=== PATIENT | male | born 1985 | race African-American/Black ===

== ENCOUNTER 2025-07-03 08:24 | Inpatient (IN) | payer MEDICAID, OTHER ==
[~2025-07-03] VITALS: Ht 193 cm; Wt 144.0 kg
[2025-07-03] VITALS (9 sets, daily range): BP systolic 98–143; BP diastolic 83–134; PULSE 61–118; RESP 18–20; TEMP 97.7–98.1; O2SAT 90–100
--- NOTE | 2025-07-03 08:50 | ED.PDOC ---
SOB-HPI HPI Comments This is a 39 year old male presenting to the ED with chief complaint of SOB. Patient reports that he has been experiencing SOB with associated coughing and wheezing since last night. Patient relays that he had experience similar symptoms in the past during work. Patient denies any chest pain, fever, chills, N/V, or dizziness. Chief Complaint: Shortness of Breath Time Seen by MD: 08:48 Primary Care Provider: NONE Reviewed notes: Nurses Notes, Medications, Allergies Information Source: Patient Mode of Arrival: Ambulatory Severity: Moderate Timing: Hours Duration: Since onset Context: At Rest PE Risk Factors: None History of: None Prehospital treatment: None Modifying Factors: Nothing Associated Signs and Symptoms: Cough If cough with SOB: Non-Productive Past Medical History PAST MEDICAL HISTORY: Denies Surgical History: Denies all surgeries Family History Family History: Reviewed,noncontributory to illness, Unknown Social History Smoker: Non-Smoker Alcohol: Occasionally Drugs: Denies Drug Use Lives In: Home Constitutional: denies: chills, diaphoresis, fatigue, fever, malaise, sweats, weakness, others EENTM: denies: blurred vision, double vision, ear bleeding, ear discharge, ear drainage, ear pain, ear ringing, eye pain, eye redness, hearing loss, mouth pain, mouth swelling, nasal discharge, nose bleeding, nose congestion, nose pain, photophobia, tearing, throat pain, throat swelling, voice changes, others Respiratory: reports: cough, shortness of breath, wheezing; denies: hemoptysis, orthopnea, SOB at rest, SOB with excertion, stridor, others Cardiovascular: denies: chest pain, dizzy spells, diaphoresis, Dyspnea on exertion, edema, irregular heart beat, left arm pain, lightheadedness, palpitations, PND, syncope, others Gastrointestinal: denies: abdomen distended, abdominal pain, blood streaked bowels, constipated, diarrhea, dysphagia, difficulty swallowing, hematemesis, melena, nausea, poor appetite, poor fluid intake, rectal bleeding, rectal pain, vomiting, others Genitourinary: denies: burning, dysuria, flank pain, frequency, hematuria, incontinence, penile discharge, penile sore, pain, testicle pain, testicle swelling, urgency, others Neurological: denies: dizziness, fainting, headache, left sided numbness, left sided weakness, numbness, paresthesia, pre-existing deficit, right sided numbness, right sided weakness, seizure, speech problems, tingling, tremors, we akness, others Musculoskeletal: denies: back pain, gout, joint pain, joint swelling, muscle pain, muscle stiffness, neck pain, others Integumetry: denies: bruises, change in color, change in hair/nails, dryness, laceration, lesions, lumps, rash, wounds, others Allergic/Immunocompromised: denies: Difficulty Healing, Frequent Infections, Hives, Itching, others Hematologic/Lymphatic: denies: anemia, blood clots, easy bleeding, easy bruising, swollen glands, others Endocrine: denies: excessive hunger, excessive sweating, excessive thirst, excessive urination, flushing, intolerance to cold, intolerance to heat, unexplained weight gain, unexplained weight loss, others Psychiatric: denies: anxiety, bipolar disorder, depression, hopeless, panic disorder, schizophrenia, sleepless, suicidal, others All Other Systems: Reviewed and Negative Physical Exam General Appearance: No Apparent Distress, Normal HEENT: Normal ENT Inspection, Pharynx Normal, TMs Normal Neck: Full Range of Motion, Non-Tender, Normal, Normal Inspection Respiratory: Chest Non-Tender, Lungs Clear, No Accessory Muscle Use, No Respiratory Distress, Normal Breath Sounds Cardiovascular: No Edema, No JVD, No Murmur, No Gallop, Normal Peripheral Pulses, Regular Rate/Rhythm Breast Exam: Deferred Gastrointestinal: No Organomegaly, Non Tender, No Pulsatile Mass, Normal Bowel Sounds, Soft Genitalia: Deferred Pelvic: Deferred Rectal: Deferred Extremities: No calf tenderness, Normal capillary refill, Normal inspection, Normal range of motion, Non-tender, No pedal edema Musculoskeletal : Apperance: Normal Neurologic: Alert, 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 Was a procedure done?: No Differential Dx Differential Diagnosis: CHF, COPD, Dysrhythmia, Pneumonia X-Ray, Labs, Meds, VS Vital Signs Date Time Temp Pulse Resp B/P (MAP) Pulse Ox O2 Delivery O2 Flow Rate FiO2 07/03/25 08:35 120 07/03/25 08:26 98.6 117 20 179/120 95 98.6 Lab Test 07/03/25 11:40 07/03/25 10:00 Range/Units Troponin I High Sensitivity Pending 59 *H </=54 ng/L White Blood Count 10.5 4.4-10.8 10^3/uL Red Blood Count 5.77 4.5-5.90 10^6/uL Hemoglobin 17.4 13.5-17.5 g/dL Hematocrit 51.9 41.0-53.0 % Mean Corpuscular Volume 89.9 80.0-100.0 fL Mean Corpuscular Hemoglobin 30.2 28.0-32.0 pg Mean Corpuscular Hemoglobin Concent 33.5 32.0-36.0 g/dL Red Cell Distribution Width 12.6 11.8-14.3 % Platelet Count 216 140-450 10^3/uL Mean Platelet Volume 9.5 6.9-10.8 fL Neutrophils (%) (Auto) 64.5 37.0-80.0 % Lymphocytes (%) (Auto) 28.0 10.0-50.0 % Monocytes (%) (Auto) 6.9 0.0-12.0 % Eosinophils (%) (Auto) 0.4 0.0-7.0 % Basophils (%) (Auto) 0.2 0.0-2.0 % Neutrophils # (Auto) 6.8 1.6-8.6 10 ^3/uL Lymphocytes # (Auto) 2.9 0.4-5.4 10 ^3/uL Monocytes # (Auto) 0.7 0-1.3 10 ^3/uL Eosinophils # (Auto) 0 0-0.8 10 ^3/uL Basophils # (Auto) 0 0-0.2 10 ^3/uL Nucleated Red Blood Cells 0.1 % Sodium Level 133 L 136-145 mmol/L Potassium Level 4.4 3.5-5.1 mmol/L Chloride Level 99 98-107 mmol/L Carbon Dioxide Level 22 20-31 mmol/L Anion Gap 12 5-15 Blood Urea Nitrogen 9 9-23 mg/dL Creatinine 0.98 0.700-1.30 mg/dL Glomerular Filtration Rate Calc 101 >90 mL/min BUN/Creatinine Ratio 9.2 L 10.0-20.0 Serum Glucose 291 H 74-106 mg/dL Calcium Level 9.2 8.7-10.4 mg/dL B-Type Natriuretic Peptide 160.14 0-100 pg/mL [address] [address] Ph: [phone] DIAGNOSTIC IMAGING Diagnostic Imaging Report : [id number] Signed PATIENT: MELISA FRAZIER ACCT: [id number] UNIT: [id number] : 1985 LOC: ER ROOM / BED: / AGE / SEX: 39 / M ADM STATUS: REG ER SERVICE 7 ORDERING PHYSICIAN: LOYD GALVAN MD PROCEDURE(s): CXRP - CHEST PORTABLE REASON: sob ORDER NUMBER(s): [id number], ACCESSION NUMBER(s): [id number] CLINICAL HISTORY: sob TECHNIQUE: Single view of the chest was obtained. COMPARISON: None FINDINGS: Evaluation is limited due to patient body habitus. The heart size and pulmonary vasculature are normal. No definite focal lung opacity seen. IMPRESSION: Limited exam with no definite acute cardiopulmonary process. ATED BY: CLARENCE WILL MD DICTATED DATE/TIME: 07/03/251000 SIGNED BY: CLARENCE WILL MD SIGNED DATE/TIME: 07/03/251000 CC: Images Reviewed?: Images reviewed and evaluated by me Time of 1ST Reevaluation: 09:48 Reevaluation 1ST: Improved Patient Education/Counseling: Diagnosis, Treatment Family Education/Counseling: No Family Present SEPSIS Sepsis Screen Date sepsis recognized/suspect: Jul 03, 2025 Time Sepsis recognized/suspect: 826 Recent Procedure: No On Antibiotic Therapy: No Respiratory Rate >20: No Heart Rate >90: No Temp<36 C (96.8 F) or >38.3 C: No SBP <90 or MAP <65 mmHG: No New Acute Mental Status Change: No Is the patient on CPAP, BIPAP,: No Physician Orders Chest Portable (07/03/25 09:38) Troponin-I Hs (07/03/25 10:38) Troponin-I Hs (07/03/25 12:38) Hydralazine Injection (Apresoline Inject (07/03/25 12:30) Vital Signs Date Time Temp Pulse Resp B/P (MAP) Pulse Ox O2 Delivery O2 Flow Rate FiO2 07/03/25 08:35 120 07/03/25 08:26 98.6 117 20 179/120 95 98.6 Laboratory Tests Test 07/03/25 10:00 White Blood Count 10.5 10^3/uL (4.4-10.8) Departure 1 Departure Time of Disposition: 12:29 (Patient presented with hypertension and symptoms concerning for hypertensive emergency. Patient is receiving iv blood pressure medications requiring intensive monitoring. Data: 1. I ordered and reviewed the result of at least 3 labs including a CBC, BMP, and Urinalysis. 2. I independently interpreted the following tests: Chest x-ray with some vascular congestion.. EKG which is Normal Sinus RhythmRisk:This patient has a high risk of morbidity due to further diagnostic testing or treatment and may suffer from an acute cardiac disorder. Workup reveals hypertensive emergency and patient should be admitted for further workup. and possible expert consultation. ) Impression: Primary Impression: Hypertensive urgency Additional Impressions: Acute chest pain Shortness of breath Disposition: ADMITTED INPATIENT Admit to: Tele Condition: Guarded Critical Care Note Critical Care Time?: Yes Critical care comment: Hypertensive urgency Authorized and Performed by: Loyd Galvan MD Total critical care time: Approximately 38 minutes Due to a high probability of clinically significant, life threatening deterioration, the patient required my highest level of preparedness to intervene emergently and I personally spent this critical care time directly and personally managing the patient. This critical care time included obtaining a history; examining the patient; pulse oximetry; ordering and review of studies; arranging urgent treatment with development of a management plan; evaluation of patient's response to treatment; frequent reassessment; and, discussions with other providers. This critical care time was performed to assess and manage the high probability of imminent, life-threatening deterioration that could result in multi-organ failure. It was exclusive of separately billable procedures and treating other patients and teaching time. Please see my other sections and the rest of the note for further information on patient assessment and treatment. Stability Stability form required: No Heart Score Heart Score: Heart Score Response (Comments) Value History N/A 0 EKG N/A 0 Age N/A 0 Risk Factors N/A 0 Troponin N/A 0 Total 0 I personally scribed for LOYD GALVAN MD ([email or web address]) on 07/03/25 at 08:50. Electronically submitted by Brian Rowan ([email or web address]). I personally scribed for LOYD GALVAN MD ([email or web address]) on 07/03/25 at 11:18. Electronically submitted by Brian Rowan ([email or web address]). LOYD GALVAN MD Jul 03, 2025 08:50
--- NOTE | 2025-07-03 09:32 | ECG ---
[facility] Test Date: 2025-07-03 Test Time: 08:35:30 Pat Name: MELISA FRAZIER Department: ED Room: 0274T Gender: M Ham Facer: LOLITA : 1985 Requested By: LOYD CULVER Order Number: [id number] Reading MD: Esteban Gonzalez Measurements Intervals [place] Rate: 120 P: 76 KS: 138 QRS: 27 QRSD: 83 T: 209 QT: 269 QTc: 380 Interpretive Statements Sinus tachycardia Abnormal R-wave progression, early transition LVH with secondary repolarization abnormality Electronically Signed On 07-08-2025 14:17:36 PDT by Esteban Gonzalez Please click the below link to view image of tracing.
--- NOTE | 2025-07-03 10:03 | DVH ---
CLINICAL HISTORY: sob TECHNIQUE: Single view of the chest was obtained. COMPARISON: None FINDINGS: Evaluation is limited due to patient body habitus. The heart size and pulmonary vasculature are normal. No definite focal lung opacity seen. IMPRESSION: Limited exam with no definite acute cardiopulmonary process.
[2025-07-03 10:19] LABS: Hematocrit 51.9 % (41.0-53.0); Hemoglobin 17.4 g/dL (13.5-17.5); Mean Corpuscular Hemoglobin 30.2 pg (28.0-32.0); Mean Corpuscular Volume 89.9 fL (80.0-100.0); Nucleated Red Blood Cells % 0.1 %
[2025-07-03 10:34] LABS: Chloride 99 mmol/L (98-107); Potassium 4.4 mmol/L (3.5-5.1)
[2025-07-03 10:35] LABS: Anion Gap 12 (5-15); Calcium 9.2 mg/dL (8.7-10.4); Carbon Dioxide 22 mmol/L (20-31)
[2025-07-03 10:40] LABS: BUN/Creatinine Ratio 9.2 (10.0-20.0); Blood Urea Nitrogen 9 mg/dL (9-23)
[2025-07-03 10:45] LABS: Glucose 291 mg/dL (74-106); Sodium 133 mmol/L (136-145)
[2025-07-03] MEDS: hydrALAZINE HCL 20 MG/ML VL IV ONE (13:34)
[2025-07-03] MEDS ORDERED: DOCUSATE SOD 100 MG CAP PO PRN (16:15)
[2025-07-03] MEDS ORDERED: MORPHINE SULFATE INJ 2 MG/ml SYRG IV PRN (16:15)
[2025-07-03] MEDS ORDERED: ACETAMINOPHEN 325 MG TAB PO PRN (16:15)
[2025-07-03] MEDS ORDERED: ONDANSETRON HCL 4 MG/2 ML VIAL IV PRN (16:15)
[2025-07-03] MEDS ORDERED: NITROGLYCERIN 0.4 MG SL TAB SL PRN (16:15)
--- NOTE | 2025-07-03 16:48 | DVHHP2 ---
History of Present Illness Reason for Visit: Shortness of breath History of Present Illness Breezy Pal is a 39-year-old obese male with no significant past medical history, however he has not been to a primary care provider for over 10 years, who came to the hospital for shortness of breath. Patient states the shortness of breath began last night at 2300. He woke up this morning about 0600 gasping for air. Family convinced him to come to the hospital around 0830. He states he has never had a problem like this before. Past Surgical History: None Smoke: No ALCOHOL: occassional Drugs: None Lives: with Family Domestic Violence: Neg Review of Systems Constitutional: No: Fever, Chills, Sweats, Weakness, Malaise, Other Eyes: No: Pain, Vision change, Conjunctivae inflammation, Eyelid inflammation, Other, Redness ENT: No: Ear pain, Ear discharge, Nose pain, Nose discharge, Nose congestion, Mouth pain, Mouth swelling, Throat pain, Throat swelling, Other Respiratory: Cough, Shortness of breath, SOB with excertion, Wheezing; No: Dry, Hemoptysis, Pleuritic Pain, Sputum, Wheezing, Other Cardiovascular: No: Chest Pain, Palpitations, Orthopnea, Paroxysmal Noc. Dyspnea, Edema, Lt Headedness, Other Gastrointestinal: No: Nausea, Vomiting, Abdominal Pain, Diarrhea, Constipation, Melena, Hematochezia, Other Genitourinary: No Dysuria, No Frequency, No Incontinence, No Hematuria, No Retention, No Other Musculoskeletal: No: other, neck pain, shoulder pain, arm pain, back pain, hand pain, leg pain, foot pain Skin: No: Rash, Lesions, Jaundice, Bruising, Other Neurological: No: Weakness, Numbness, Incoordination, Change in speech, Confusion, Seizures, Other Allergies: Coded Allergies: No Known Drug Allergy (Verified Allergy, Unknown, 03/28/18) Medications Current Medications Medications Dose Ordered Sig/Drew Route Start Time Stop Time Status Last Admin Dose Admin Acetaminophen/ Hydrocodone Bitart 1 tab Q4HP PRN PO 07/03/25 16:15 UNV Ondansetron HCl 4 mg Q4HP PRN IV 07/03/25 16:15 UNV Docusate Sodium 100 mg BIDPRN PRN PO 07/03/25 16:15 UNV Acetaminophen 650 mg Q6HP PRN PO 07/03/25 16:15 UNV Nitroglycerin 0.4 mg Q5MINP PRN SL 07/03/25 16:15 UNV Morphine Sulfate 2 mg Q30M PRN IV 07/03/25 16:15 UNV Ipratropium [place] 0.5 mg Q6HPRN PRN NEB 07/03/25 16:15 UNV Albuterol 2.5 mg Q6HPRN PRN NEB 07/03/25 16:15 UNV Exam Vital Signs Vital Signs Date Time Temp Pulse Resp B/P (MAP) Pulse Ox O2 Delivery O2 Flow Rate FiO2 07/03/25 14:17 120 20 104/90 (95) 96 07/03/25 08:26 98.6 98.6 General Appearance: Alert, Oriented X3, Cooperative, mild distress HEENT: Atraumatic Respiratory: Other (diminished breath sounds) Cardiovascular: Normal S1, Normal S2, Other (ST) Abdominal: Normal bowel sounds, Soft, No tenderness, No hepatospenomegaly Extremities: No clubbing, No cyanosis, No edema, Normal pulses, No te nderness/swelling Skin: No rashes, No breakdown, No significant lesion Neuro: Normal gait, Normal speech, Strength at 5/5 X4 ext Psych/Mental Status: Mental status NL, Mood NL Labs/Xrays Labs Test 07/03/25 13:41 07/03/25 10:00 Range/Units Troponin I High Sensitivity 47 </=54 ng/L White Blood Count 10.5 4.4-10.8 10^3/uL Red Blood Count 5.77 4.5-5.90 10^6/uL Hemoglobin 17.4 13.5-17.5 g/dL Hematocrit 51.9 41.0-53.0 % Mean Corpuscular Volume 89.9 80.0-100.0 fL Mean Corpuscular Hemoglobin 30.2 28.0-32.0 pg Mean Corpuscular Hemoglobin Concent 33.5 32.0-36.0 g/dL Red Cell Distribution Width 12.6 11.8-14.3 % Platelet Count 216 140-450 10^3/uL Mean Platelet Volume 9.5 6.9-10.8 fL Neutrophils (%) (Auto) 64.5 37.0-80.0 % Lymphocytes (%) (Auto) 28.0 10.0-50.0 % Monocytes (%) (Auto) 6.9 0.0-12.0 % Eosinophils (%) (Auto) 0.4 0.0-7.0 % Basophils (%) (Auto) 0.2 0.0-2.0 % Neutrophils # (Auto) 6.8 1.6-8.6 10 ^3/uL Lymphocytes # (Auto) 2.9 0.4-5.4 10 ^3/uL Monocytes # (Auto) 0.7 0-1.3 10 ^3/uL Eosinophils # (Auto) 0 0-0.8 10 ^3/uL Basophils # (Auto) 0 0-0.2 10 ^3/uL Nucleated Red Blood Cells 0.1 % Sodium Level 133 L 136-145 mmol/L Potassium Level 4.4 3.5-5.1 mmol/L Chloride Level 99 98-107 mmol/L Carbon Dioxide Level 22 20-31 mmol/L Anion Gap 12 5-15 Blood Urea Nitrogen 9 9-23 mg/dL Creatinine 0.98 0.700-1.30 mg/dL Glomerular Filtration Rate Calc 101 >90 mL/min BUN/Creatinine Ratio 9.2 L 10.0-20.0 Serum Glucose 291 H 74-106 mg/dL Calcium Level 9.2 8.7-10.4 mg/dL B-Type Natriuretic Peptide 160.14 0-100 pg/mL TECHNIQUE: Single view of the chest was obtained. FINDINGS: Evaluation is limited due to patient body habitus. The heart size and pulmonary vasculature are normal. No definite focal lung opa city seen. IMPRESSION: Limited exam with no definite acute cardiopulmonary process. SEPSIS Sepsis Screen Date sepsis recognized/suspect: Jul 03, 2025 Time Sepsis recognized/suspect: 826 Recent Procedure: No On Antibiotic Therapy: No Respiratory Rate >20: No Heart Rate >90: No Temp<36 C (96.8 F) or >38.3 C: No SBP <90 or MAP <65 mmHG: No New Acute Mental Status Change: No Is the patient on CPAP, BIPAP,: No Physician Orders Chest Portable (07/03/25 09:38) Admit (07/03/25 16:07) Code Status (07/03/25 16:07) 2 Gm Sodium Diet (07/03/25 Dinner) Hydrocodone-Acet 5/325mg Tab ([place] (07/03/25 16:15) Ondansetron Hcl (Zofran) (07/03/25 16:15) Docusate Sodium Capsule (Colace Capsule) (07/03/25 16:15) Complete Blood Count (07/04/25 04:00) Comprehensive Metabolic Panel (07/04/25 04:00) Condition: Serious (07/03/25 16:07) Acetaminophen Tablet (Tylenol Tablet) (07/03/25 16:15) Nitroglycerin Sublingual (Ntrostat Subli (07/03/25 16:15) Morphine Sulfate Injection (07/03/25 16:15) Stat Ekg For Chest Pain (07/03/25 16:07) Notify Md Of Changes From Base (07/03/25 16:07) Flight Mechanic For 24 Hours (07/03/25 16:07) Emergency Dysrhythmia Protocol (07/03/25 16:07) Rhythm Strips Once Every Shift (07/03/25 16:07) Oxygen By Nasal Cannula (07/03/25 16:07) NS (07/03/25 16:15) Ipratropium Medneb (Atrovent Medneb) (07/03/25 16:15) Albuterol Medneb (Ventolin Medneb) (07/03/25 16:15) Vital Signs Date Time Temp Pulse Resp B/P (MAP) Pulse Ox O2 Delivery O2 Flow Rate FiO2 07/03/25 14:17 120 20 104/90 (95) 96 07/03/25 14:15 119 22 87/49 (62) 96 07/03/25 13:42 139 07/03/25 13:37 139 20 190/123 (145) 98 07/03/25 13:34 190/123 07/03/25 08:35 120 07/03/25 08:26 98.6 117 20 179/120 95 98.6 Laboratory Tests Test 07/03/25 10:00 White Blood Count 10.5 10^3/uL (4.4-10.8) Medications Medications Dose Ordered Sig/Drew Route Start Time Stop Time Status Last Admin Dose Admin Hydralazine HCl 20 mg ONCE ONCE IV 07/03/25 12:30 07/03/25 12:50 DC 07/03/25 13:34 20 MG Assessment/Plan Assessment/Plan Assessment: Hypertensive urgency, Elevated troponin, Hyperglycemia, Possible COPD, Sinus tachycardia, Plan: Admit to Tele, Breathing treatments, ECHO, IV hydration, A1c, Consider cardiology consult, Start antihypertensives, Plan discussed with: Patient My Orders Orders - MONIE MCMILLAN Procedure Category Date Status Time Admit ADMIT 07/03/25 Transmitted 16:07 Code Status CODE 07/03/25 Transmitted 16:07 2 Gm Sodium Diet DIET 07/03/25 Transmitted Dinner Hydrocodone-Acet PHA 07/03/25 Logged 5/325mg Tab ([place] 16:15 Ondansetron Hcl PHA 07/03/25 Logged (Zofran) 16:15 Docusate Sodium PHA 07/03/25 Logged Capsule (Colace 16:15 Complete Blood Count LAB 07/04/25 Verified 04:00 Comprehensive LAB 07/04/25 Verified Metabolic Panel 04:00 Condition: Serious [place]ONE 07/03/25 In Process 16:07 Acetaminophen Tablet PHA 07/03/25 Logged (Tylenol Tablet) 16:15 Nitroglycerin PHA 07/03/25 Logged Sublingual (Ntrostat 16:15 Morphine Sulfate PHA 07/03/25 Logged Injection 16:15 Stat Ekg For Chest [facility] 07/03/25 In Process Pain 16:07 Notify Md Of Changes [facility] 07/03/25 In Process From Base 16:07 Flight Mechanic For [facility] 07/03/25 In Process 24 Hours 16:07 Emergency Dysrhythmia [facility] 07/03/25 In Process Protocol 16:07 Rhythm Strips Once [facility] 07/03/25 In Process Every Shift 16:07 Oxygen By Nasal RT 07/03/25 Transmitted Cannula 16:07 NS PHA 07/03/25 Transmitted 16:15 Ipratropium Medneb PHA 07/03/25 Transmitted (Atrovent Medneb) 16:15 Albuterol Medneb PHA 07/03/25 Transmitted (Ventolin Medneb) 16:15 Date of Service: Jul 03, 2025 Billing Provider: MONIE MCMILLAN Common Visit Codes: [id number] INP/OBS CARE (MOD) MONIE MCMILLAN Jul 03, 2025 16:48
[2025-07-03] MEDS ORDERED: SERT100T PO (17:57)
[2025-07-03] MEDS ORDERED: LISI40TA16 PO (17:57)
[2025-07-03] MEDS ORDERED: VALA1TAB PO (17:57)
[2025-07-03] MEDS ORDERED: METO-158 PO (17:57)
[2025-07-03] MEDS: SODIUM CHLORIDE 0.9% 1,000 ML IV ONE (18:43)
[2025-07-03] MEDS: ALBUTEROL SULF 2.5 MG/0.5ML(0.5%) NEB SOLN NEB PRN (20:27)
[2025-07-03] MEDS: IPRATROPIUM BROM 0.5 MG/2.5ML INH SOL NEB PRN (20:27)
[2025-07-04] VITALS (10 sets, daily range): BP systolic 128–156; BP diastolic 80–105; PULSE 104–117; RESP 17–22; TEMP 97.6–98.2; O2SAT 95–98
[2025-07-04 08:04] LABS: Hematocrit 45.7 % (41.0-53.0); Hemoglobin 15.8 g/dL (13.5-17.5); Mean Corpuscular Hemoglobin 30.4 pg (28.0-32.0); Mean Corpuscular Volume 87.8 fL (80.0-100.0); Nucleated Red Blood Cells % 0.0 %
[2025-07-04 08:13] LABS: Alanine Aminotransferase 11 U/L (7-40); Alkaline Phosphatase 85 U/L (46-116); Anion Gap 12 (5-15); BUN/Creatinine Ratio 12.6 (10.0-20.0); Blood Urea Nitrogen 16 mg/dL (9-23); Calcium 9.0 mg/dL (8.7-10.4); Carbon Dioxide 25 mmol/L (20-31); Potassium 4.4 mmol/L (3.5-5.1); Total Protein 7.3 g/dL (5.7-8.2)
[2025-07-04 08:14] LABS: Albumin 4.1 g/dL (3.2-4.8); Bilirubin, Total 0.7 mg/dL (0.2-1.0)
[2025-07-04 08:41] LABS: Chloride 98 mmol/L (98-107); Glucose 288 mg/dL (74-106); Sodium 135 mmol/L (136-145)
[2025-07-04] MEDS: hydroCHLOROthiazide 25 MG TAB PO SCH (09:30)
[2025-07-04] MEDS: HYDROcodone-ACET 5/325MG TAB PO PRN (09:38)
[2025-07-04] MEDS: OPTISON 3ml Vial for INJ IV ONE (09:50)
--- NOTE | 2025-07-04 11:00 | DVHPN2 ---
Subjective The patient is seen and examined at bedside. The patient complained of chest pain. The patient stated that he did not know he had hypertension nor diabetes. Reviewed: Care Plan, H&P, Labs, Medications, Previous Orders, Radiology Changes from previous H/P or p: No Changes Eyes: No Pain, No Vision change, No Conjunctivae inflammation, No Eyelid inflammation, No Other, No Redness ENT: No Ear pain, No Ear discharge, No Nose pain, No Nose discharge, No Nose congestion, No Mouth pain, No Mouth swelling, No Throat pain, No Throat swelling, No Other Cardiovascular: No Chest Pain, No Palpitations, No Orthopnea, No Paroxysmal Noc. Dyspnea, No Edema, No Lt Headedness, No Other Respiratory: Cough; No Dry; Shortness of breath, SOB with excertion, Wheezing; No Hemoptysis, No Pleuritic Pain, No Sputum, No Other Gastrointestinal: No Nausea, No Vomiting, No Abdominal Pain, No Diarrhea, No Constipation, No Melena, No Hematochezia, No Other Genitourinary: No Dysuria, No Frequency, No Incontinence, No Hematuria, No Retention, No Other Musculoskeletal: No other, No neck pain, No shoulder pain, No arm pain, No back pain, No hand pain, No leg pain, No foot pain Skin: No Rash, No Lesions, No Jaundice, No Bruising, No Other Objective Vitals Vital Signs Date Time Temp Pulse Resp B/P (MAP) Pulse Ox O2 Delivery O2 Flow Rate FiO2 07/04/25 09:30 135/90 07/04/25 08:34 98.2 110 17 97 98.2 07/04/25 08:00 Room Air* 0 21 Intake/Output Intake and Output 07/04/25 07:00 Intake Total 230 ml Balance 230 ml Intake Oral 230 ml # Voids 1 General Appearance: Alert, Oriented X3, Cooperative, No acute distress HEENT: Atraumatic, PERRLA, EOMI, Mucous membr. moist/pink Neck: Supple Lungs: Clear to auscultation, Normal air movement Cardiovascular: Regular rate, Normal S1, Normal S2, No murmurs, Gallops, Rubs Abdomen: Normal bowel sounds, Soft, No tenderness Neuro: Cranial nerves 3-12 NL Psych/Mental Status: Mental status NL Medications Current Medications Medications Dose Ordered Sig/Drew Route Start Time Stop Time Status Last Admin Dose Admin Acetaminophen/ Hydrocodone Bitart 1 tab Q4HP PRN PO 07/03/25 16:15 07/04/25 09:38 1 TAB Ondansetron HCl 4 mg Q4HP PRN IV 07/03/25 16:15 Docusate Sodium 100 mg BIDPRN PRN PO 07/03/25 16:15 Acetaminophen 650 mg Q6HP PRN PO 07/03/25 16:15 Nitroglycerin 0.4 mg Q5MINP PRN SL 07/03/25 16:15 Morphine Sulfate 2 mg Q30M PRN IV 07/03/25 16:15 Ipratropium [place] 0.5 mg Q6HPRN PRN NEB 07/03/25 16:15 07/03/25 20:27 0.5 MG Albuterol 2.5 mg Q6HPRN PRN NEB 07/03/25 16:15 07/03/25 20:27 2.5 MG Hydrochlorothiazide 25 mg DAILY PO 07/04/25 10:00 07/04/25 09:30 25 MG Laboratory Results Laboratory Tests 07/04/25 06:25 Chemistry Test 07/04/25 06:25 Albumin 4.1 g/dL (3.2-4.8) Calcium Level 9.0 mg/dL (8.7-10.4) Total Protein 7.3 g/dL (5.7-8.2) LFT Test 07/04/25 06:25 Alanine Aminotransferase (ALT) 11 U/L (7-40) Alkaline Phosphatase 85 U/L (46-116) Aspartate Amino Transferase (AST) 19 U/L (13-40) Total Bilirubin 0.7 mg/dL (0.2-1.0) Labs and/or images reviewed: Labs reviewed by me Assessment/Plan Assessment/Plan Hypertensive urgency, Elevated troponin, Diabetes type 2 new onset uncontrolled with hemoglobin A1c 13.2 Possible COPD, Sinus tachycardia, Continuing current management. Continuing with oral hypertensive medication Start the patient on sliding scale insulin moderate I will order a Lantus for long-acting at bedtime Educated the patient regarding to diabetes in the consequence of diabetes uncontrolled such as retinopathy, neuropathy and other complication of diabetes including CVA and ischemic heart. This medical document was created using an electronic medical record system with [employer] direct computerized dictation system. Although this document has been carefully reviewed, there may still be some phonetic and typographical errors. These areas are purely typographical due to imperfections of the software programs, and do not reflect any compromise in the patient's medical care. Plan discussed with: Patient Date of Service: Jul 04, 2025 Billing Provider: BRENT DESIR MD Common Visit Codes: [id number] INP/OBS CARE(HIGH) BRENT DESIR MD Jul 04, 2025 11:00
[2025-07-04] MEDS ORDERED: DEXTROSE (50%) 50ML SYRG IV PRN (11:30)
[2025-07-04] MEDS: ACCU-CHEK COMFORT CURVE STRIP VI SCH (18:22)
[2025-07-04] MEDS: InsuLIN REG 1unit/0.01ml Soln (100units/ml) SC SCH ×2 (18:23→21:17)
[2025-07-04] MEDS: INSULIN LANTUS (GLARGINE) 1 /0.01ml (100units/ml) SC SCH (21:18)
[2025-07-05] VITALS (11 sets, daily range): BP systolic 119–141; BP diastolic 81–105; PULSE 92–118; RESP 18–20; TEMP 97.1–98.1; O2SAT 95–98
--- NOTE | 2025-07-05 12:39 | DVHPN2 ---
Subjective The patient is seen and examined at bedside. The patient complained of chest pain. The patient stated that he did not know he had hypertension nor diabetes. Reviewed: Care Plan, H&P, Labs, Medications, Previous Orders, Radiology Changes from previous H/P or p: No Changes Eyes: No Pain, No Vision change, No Conjunctivae inflammation, No Eyelid inflammation, No Other, No Redness ENT: No Ear pain, No Ear discharge, No Nose pain, No Nose discharge, No Nose congestion, No Mouth pain, No Mouth swelling, No Throat pain, No Throat swelling, No Other Cardiovascular: No Chest Pain, No Palpitations, No Orthopnea, No Paroxysmal Noc. Dyspnea, No Edema, No Lt Headedness, No Other Respiratory: Cough; No Dry; Shortness of breath, SOB with excertion, Wheezing; No Hemoptysis, No Pleuritic Pain, No Sputum, No Other Gastrointestinal: No Nausea, No Vomiting, No Abdominal Pain, No Diarrhea, No Constipation, No Melena, No Hematochezia, No Other Genitourinary: No Dysuria, No Frequency, No Incontinence, No Hematuria, No Retention, No Other Musculoskeletal: No other, No neck pain, No shoulder pain, No arm pain, No back pain, No hand pain, No leg pain, No foot pain Skin: No Rash, No Lesions, No Jaundice, No Bruising, No Other Objective Vitals Vital Signs Date Time Temp Pulse Resp B/P (MAP) Pulse Ox O2 Delivery O2 Flow Rate FiO2 07/05/25 10:00 98 Room Air 0.0 07/05/25 10:00 21 07/05/25 09:22 141/100 07/05/25 09:00 97.8 108 20 97.8 Intake/Output Intake and Output 07/05/25 07:00 Intake Total 2200 ml Balance 2200 ml Intake Oral 2200 ml # Voids 5 # Bowel Movements 2 General Appearance: Alert, Oriented X3, Cooperative, No acute distress HEENT: Atraumatic, PERRLA, EOMI, Mucous membr. moist/pink Neck: Supple Lungs: Clear to auscultation, Normal air movement Cardiovascular: Regular rate, Normal S1, Normal S2, No murmurs, Gallops, Rubs Abdomen: Normal bowel sounds, Soft, No tenderness Neuro: Cranial nerves 3-12 NL Psych/Mental Status: Mental status NL Medications Current Medications Medications Dose Ordered Sig/Drew Route Start Time Stop Time Status Last Admin Dose Admin Acetaminophen/ Hydrocodone Bitart 1 tab Q4HP PRN PO 07/03/25 16:15 07/04/25 14:37 1 TAB Ondansetron HCl 4 mg Q4HP PRN IV 07/03/25 16:15 Docusate Sodium 100 mg BIDPRN PRN PO 07/03/25 16:15 Acetaminophen 650 mg Q6HP PRN PO 07/03/25 16:15 Nitroglycerin 0.4 mg Q5MINP PRN SL 07/03/25 16:15 Morphine Sulfate 2 mg Q30M PRN IV 07/03/25 16:15 Ipratropium Clubb 0.5 mg Q6HPRN PRN NEB 07/03/25 16:15 07/03/25 20:27 0.5 MG Albuterol 2.5 mg Q6HPRN PRN NEB 07/03/25 16:15 07/03/25 20:27 2.5 MG Hydrochlorothiazide 25 mg DAILY PO 07/04/25 10:00 07/05/25 09:22 25 MG Metformin HCl 1,000 mg BID PO 07/04/25 22:00 07/05/25 09:22 1,000 MG Insulin Glargine 20 units HS SC 07/04/25 22:00 07/04/25 21:18 20 UNITS Diagnostic Test (Pha) 1 strip ACHS 07/04/25 17:00 07/05/25 11:54 1 STRIP Insulin Human Regular HS SC 07/04/25 22:00 07/04/25 21:17 8 UNITS Insulin Human Regular AC SC 07/04/25 17:00 07/05/25 11:55 6 UNITS Dextrose 50 ml UD PRN IV 07/04/25 11:30 Laboratory Results Laboratory Tests 07/04/25 06:25 Labs and/or images reviewed: Labs reviewed by me Assessment/Plan Assessment/Plan Hypertensive urgency, Elevated troponin, Diabetes type 2 new onset uncontrolled with hemoglobin A1c 13.2 Possible COPD, Sinus tachycardia, Continuing current management. Continuing with oral hypertensive medication Start the patient on sliding scale insulin moderate I will order a Lantus for long-acting at bedtime. Will add glipirize 10mg qday will add norvasc 10mg PO qday. Educated the patient regarding to diabetes in the consequence of diabetes uncontrolled such as retinopathy, neuropathy and other complication of diabetes including CVA and ischemic heart. This medical document was created using an electronic medical record system with [employer] direct computerized dictation system. Although this document has been carefully reviewed, there may still be some phonetic and typographical errors. These areas are purely typographical due to imperfections of the software programs, and do not reflect any compromise in the patient's medical care. Plan discussed with: Patient, Other (RN) Date of Service: Jul 05, 2025 Billing Provider: BRENT DESIR MD Common Visit Codes: [id number] INP/OBS CARE(HIGH) BRENT DESIR MD Jul 05, 2025 12:39
[2025-07-05] MEDS: glipiZIDE 5 MG TAB PO SCH (16:54)
[2025-07-06] VITALS (8 sets, daily range): BP systolic 116–124; BP diastolic 70–92; PULSE 59–110; RESP 15–20; TEMP 97.5–98.4; O2SAT 96–99
[2025-07-06] MEDS ORDERED: HYDR25TA5 PO (13:36)
[2025-07-06] MEDS ORDERED: METF-372 PO (13:36)
[2025-07-06] MEDS ORDERED: AMLO1TAB23 PO (13:36)
[2025-07-06] MEDS ORDERED: GLIP10TA9 PO (13:36)
[2025-07-06] MEDS ORDERED: GLUC1TES63 VI (13:40)
[2025-07-06] MEDS ORDERED: LANC-347 XX (13:40)
[2025-07-06] MEDS ORDERED: BLOO1KIT XX (13:40)
[2025-07-06] MEDS ORDERED: INSU0.5M41 XX (13:43)
[2025-07-06] MEDS ORDERED: INSLANTI SC (13:43)
--- NOTE | 2025-07-06 13:44 | DVHDS2 ---
Discharge Summary Date of Admission Jul 03, 2025 at 16:07 Date of Discharge: Jul 06, 2025 Admitting Diagnosis Hypertensive urgency, Elevated troponin, Diabetes type 2 new onset uncontrolled with hemoglobin A1c 13.2 Possible COPD, Sinus tachycardia, Labs/Diagnostic Data: Laboratory Results Test 07/06/25 11:33 07/04/25 06:25 07/03/25 13:41 07/03/25 10:00 POC Glucose 151 mg/dl (70-106) White Blood Count 6.6 10^3/uL (4.4-10.8) Red Blood Count 5.20 10^6/uL (4.5-5.90) Hemoglobin 15.8 g/dL (13.5-17.5) Hematocrit 45.7 % (41.0-53.0) Mean Corpuscular Volume 87.8 fL (80.0-100.0) Mean Corpuscular Hemoglobin 30.4 pg (28.0-32.0) Mean Corpuscular Hemoglobin Concent 34.6 g/dL (32.0-36.0) Red Cell Distribution Width 12.7 % (11.8-14.3) Platelet Count 197 10^3/uL (140-450) Mean Platelet Volume 10.0 fL (6.9-10.8) Neutrophils (%) (Auto) 59.2 % (37.0-80.0) Lymphocytes (%) (Auto) 31.3 % (10.0-50.0) Monocytes (%) (Auto) 8.5 % (0.0-12.0) Eosinophils (%) (Auto) 0.8 % (0.0-7.0) Basophils (%) (Auto) 0.2 % (0.0-2.0) Neutrophils # (Auto) 3.9 10 ^3/uL (1.6-8.6) Lymphocytes # (Auto) 2.1 10 ^3/uL (0.4-5.4) Monocytes # (Auto) 0.6 10 ^3/uL (0-1.3) Eosinophils # (Auto) 0.1 10 ^3/uL (0-0.8) Basophils # (Auto) 0 10 ^3/uL (0-0.2) Nucleated Red Blood Cells 0.0 % Sodium Level 135 mmol/L (136-145) Potassium Level 4.4 mmol/L (3.5-5.1) Chloride Level 98 mmol/L (98-107) Carbon Dioxide Level 25 mmol/L (20-31) Anion Gap 12 (5-15) Blood Urea Nitrogen 16 mg/dL (9-23) Creatinine 1.27 mg/dL (0.700-1.30) Glomerular Filtration Rate Calc 74 mL/min (>90) BUN/Creatinine Ratio 12.6 (10.0-20.0) Serum Glucose 288 mg/dL (74-106) Calcium Level 9.0 mg/dL (8.7-10.4) Total Bilirubin 0.7 mg/dL (0.2-1.0) Aspartate Amino Transferase (AST) 19 U/L (13-40) Alanine Aminotransferase (ALT) 11 U/L (7-40) Alkaline Phosphatase 85 U/L (46-116) Total Protein 7.3 g/dL (5.7-8.2) Albumin 4.1 g/dL (3.2-4.8) Troponin I High Sensitivity 47 ng/L (</=54) Hemoglobin A1c 13.2 % A1C (<5.7) B-Type Natriuretic Peptide 160.14 pg/mL (0-100) Other Laboratory Tests 07/04/25 06:25 Brief Hx & Hospital Course: This is a 39 years old morbid obese male with no known past medical history however he had not been seeing any primary care provider for 10 years who come to hospital for severe shortness for breath. The patient stated that shortness for breath began at 2300. The patient woke up in the morning gasping for air. The family convinced him to come to hospital for further evaluation. The patient was found hypertension urgency with systolic blood pressure 1 70-180. The patient also found to have diabetes with hemoglobin A1c of 13.2. The patient denied any known history of hypertension or diabetes. We will treat the patient for new onset diabetes and also new onset hypertension. The patient was started on Norvasc and hydrochlorothiazide. Her blood pressure is controlled and systolic blood pressure in the range of 120-130 now. The patient's blood glucose is elevated above 200. The patient was started on sliding scale insulin, Lantus, metformin and glipizide. Today blood glucose better controlled less than 150. I am going to discharge him home. Advised him to stop this the primary care physician. Advised him to follow up with primary care physician 1- 2 weeks. Activity as tolerated. Diet per home diet. Recommend low-salt low- cholesterol 2000 ADA calorie diet Physical exam: HEENT: Normocephalic atraumatic pupils equal react to light and accommodation. Extraocular muscles intact, conjunctiva pink, oropharynx moist, no thrush, no exudate. Lymphatic: No lymphadenopathy Cardiovascular exam: S1, S2 was heard. No murmurs, rubs, gallops Lung: Clear on auscultation bilaterally, no wheeze, rale, rhonchi. GI: Abdominal soft, nondistended, nontenderness, positive bowel sounds. Extremity: No crepitus, cyanosis, edema. Pedal pulses present bilateral. Full range of motion. Skin: Normal turgor, no rash. Psych: Alert, oriented x3. Neurology: No focal deficits, cranial nerve II to XII grossly intact. This medical document was created using an electronic medical record system with [employer] direct computerized dictation system. Although this document has been carefully reviewed, there may still be some phonetic and typographical errors. These areas are purely typographical due to imperfections of the software programs, and do not reflect any compromise in the patient's medical care. Condition at Discharge: Stable Final Diagnosis/Problems List Hypertensive urgency, Elevated troponin, Diabetes type 2 new onset uncontrolled with hemoglobin A1c 13.2 Possible COPD, Sinus tachycardia, Discharge Disposition: Home Discharge Instruct/Medications Diet: Cardiac 2g Na,low cholest Activity: No Restrictions, As Tolerated Follow Up/Referral: pcp 1-2 weeks Medications: see med list Scheduled Amlodipine Besylate (Amlodipine Besylate), 1 TAB PO DAILY Glipizide (Glipizide), 1 TAB PO BID Glucose Blood (Glucose Meter Test Strips), 100 [email or web address] Hctz (Hydrochlorothiazide), 25 MG PO DAILY Insulin Glargine (Lantus), 20 UNIT SC HS Metformin Hydrochloride (Metformin Hcl), 1 TAB PO BID Sildenafil Citrate (Viagra), 1 TAB PO DAILYP Discontinued Medications Lisinopril (Lisinopril), 40 MG PO DAILY, (Reported) Metoprolol Tartrate (Metoprolol Tartrate), 50 MG PO DAILY, (Reported) Sertraline Hcl (Zoloft), 1 TAB PO DAILY, (Reported) Valacyclovir Hcl (Valtrex), 500 MG PO DAILY, (Reported) Durable Medical Equipment Blood Glucose Monitoring Suppl (True Metrix Blood Glucose W/Device), KIT [email or web address], (DME) Insulin Syringe/Needle U-100 (Bd Insulin Syringe Ultraf), MG XX DAILY, (DME) Lancets (Freestyle Lancets), BOX XX DAILY, (DME) Discharge Statement: "Patient was advised to return to the ER or call 911 if any headaches, dizziness, shortness of breath, chest pain, abdominal pain, bleeding, fevers, or worsening of medical condition. Patient was counseled about treatment plan, medications, possible side effects, patientverbalized understanding. All questions were answered to the best of my ability. This discharge took greater then 30 minutes in planning, reviewing documentation, counseling the patient, and discussing with other team members." ASSESSMENT ASSESSMENT Assessment DM new onset HTN uncontrolled and newly dx Date of Service: Jul 06, 2025 Billing Provider: BRENT DESIR MD Common Visit Codes: 75074-XUQ/OBS DISCH DAY >30min BRENT DESIR MD Jul 06, 2025 13:44
[2025-07-06] MEDS ORDERED: SILD100T PO (14:11)
--- NOTE | 2025-07-07 14:14 | DVHSR ---
APPROVED REPORT EXAM: LIMITED Two-dimensional echocardiogram with Optison. Blood Pressure: 128/80 mmHg INDICATION HYPERTENSIVE URGENCY RISK FACTORS Obesity: Height: 6'4, Weight: 326 DIMENSIONS LVDd (3.8-5.7cm)LA (2D)3.9 (1.9-4.0cm)Aortic Root (2.0-3.7cm) EF (%) 25.0 (55-70%)Rt. Atrium (1.9-4.0cm)Asc. Aorta cm Mitral Valve MitralMitral Stenosis E wave0.75m/sMV Mean GR.mmHg A wave0.83m/sMV Peak GR.45mmHg E/A ratio0.92D MVAcm2 DECEL [id number] 1/2 Timems Aortic Valve Aortic ValveAortic Stenosis V10.88m/Jennifer Mean GR.mmHg V21.03m/Jennifer Peak GR.4mmHg LVOT Diameter1.9 (1.8-2.4cm)Doppler AVA2.42cm2 Other Information Quality : Technically LimitedRhythm : Technically limited study due to PT sob, unable to lay down. body habitus. Conclusion lvef 15% end stage HF optson used for LV opacification RV not well seen limited study normal atria no severe valve abnormaliteis noted asked to read echo 1 hour ago
== END 2025-07-06 15:40 | disposition home or self-care (01) | DRG 199 ==
LOC: ER 08:24 → OVERFLOW 16:07 → TELE-WESTW 19:05
PROVIDERS: ADMIT Internal Medicine; ATTEND Internal Medicine
DX: I16.0 Hypertensive urgency (principal); E11.65 Type 2 diabetes mellitus with hyperglycemia; I10 Essential (primary) hypertension; R00.0 Tachycardia, unspecified; R79.89 Other specified abnormal findings of blood chemistry; Z79.4 Long term (current) use of insulin; E66.01 Morbid (severe) obesity due to excess calories; Z68.38 Body mass index [BMI] 38.0-38.9, adult
CPT/HCPCS: 36415; 71045; 80048; 80053; 82962; 83036; 83880; 84484; 85025; 93005; 93306; 94640; 99291; G0378; J1815; Q9956